=== PATIENT | male | born 1975 | race Caucasian/White ===

== ENCOUNTER 2022-02-04 19:58 | Emergency (ER) | payer MEDICAID ==
[~2022-02-04] VITALS: Ht 182.9 cm; Wt 95.3 kg
[2022-02-04 19:59] VITALS: BP_SYST 143
--- NOTE | 2022-02-04 20:09 | NUR ---
Pt brought in by paramedics due to OD on Fentanyl. Given Narcan 4 mg by medics en route and noted effective. BS 150. Pt arrived to ER in stable condition. Breathing adequately on 2 lpm via NC. Verbally responsive. Placed on monitor at this time. VSS.
--- NOTE | 2022-02-04 22:00 | NUR ---
Pt resting comfortably in bed. No signs of acute distress. VSS.
--- NOTE | 2022-02-05 | NUR ---
Pt continue resting comfortably in bed. No signs of acute distress. VSS.
[2022-02-05 03:38] VITALS: BP_SYST 143
--- NOTE | 2022-02-05 03:42 | NUR ---
Patient given written and verbal discharge instructions and verbalizes understanding. ER MD discussed with patient the results and treatment provided. Patient in stable condition. ID arm band removed. Opportunity for questions provided and answered. Medication side effect fact sheet provided.
== END 2022-02-05 03:42 | disposition home or self-care (01) ==
LOC: SED 19:58
DX: T40.411A Poisoning by fentanyl or fentanyl analogs, accidental (unintentional), initial encounter (principal); R40.4 Transient alteration of awareness; Y92.89 Other specified places as the place of occurrence of the external cause
CPT/HCPCS: 99283